=== PATIENT | female | born 1970 | race African-American/Black ===

== ENCOUNTER 2017-03-13 21:08 | Emergency (ER) | payer SELFPAY ==
[~2017-03-13] VITALS: Ht 162.6 cm; Wt 86.4 kg
[~2017-03-13 21:08] MED LIST: ANTIVERT 25MG25 MG PO; ATIVAN 0.50.5 MG/TAB PO; CEFTIN500 MG PO; CYMBALTA 20MG20 MG PO; FLEXERIL 1010 MG/TAB PO; FLEXERIL5 MG PO; MOBIC 7.5MG7.5 MG; MOBIC15 MG PO; NAPROSYN500 MG PO; NORCO 325 MG-51 TAB PO; NORCO 325 MG-7.1 TAB PO; PRAVACHOL10 MG PO; PREDNISONE20 MG PO; PROAIR HFA0.09 MG/AC IH; ULTRAM 50MG TAB50 MG PO; VENTOLIN0.09 MG IH; ZANAFLEX2 MG PO; ZOFRAN8 MG PO
[2017-03-13 21:12] VITALS: TEMP 97.9
[2017-03-13] MEDS ORDERED: SYNTHROID 0.0.025 MG PO (21:15)
[2017-03-13 21:47] LABS: BASO # 0.1 (0.0-0.2); BASO % 0.7 % (0.0-2.0); EOS # 0.1 (0.0-0.7); EOS % 1.9 % (0-4.0); GRAN # 3.5 (1.4-6.5); GRAN % 50.3 % (42.2-75.2); HEMATOCRIT 43.2 % (37.0-47.0); HEMOGLOBIN 14.4 g/dl (12.5-16.0); LYMPH # 2.8 (1.2-3.4); LYMPH % 39.4 % (20.0-51.0); MEAN CELL VOLUME 91 fl (80.0-100.0); MEAN CORPUSCULAR HEMOGLOBIN 30 pg (27.0-31.0); MEAN CORPUSCULAR HGB CONC 33 g/dl (33.0-37.0); MEAN PLATELET VOLUME 12.1 fl (7.4-10.4); MONO # 0.5 (0.1-0.6); MONO % 7.4 % (1.7-9.3); PLATELET COUNT 187 K/mm3 (130-400); RED BLOOD COUNT 4.76 M/mm3 (4.10-5.30); REDCELL DISTRIBUTION WIDTH-CV 14.5 % (11.5-14.5)
[2017-03-13 22:00] LABS: ADJUSTED CALCIUM 9.6 mg/dL (8.4-10.2); ALBUMIN 3.9 gm/dL (3.5-5.0); BILIRUBIN,TOTAL 0.4 mg/dL (0.0-1.0); C-REACTIVE PROTEIN 0.8 mg/dL (0.0-0.9); CALCIUM 9.5 mg/dL (8.4-10.2); CREATININE, serum 0.82 mg/dL (0.52-1.25); POTASSIUM 4.1 mmol/L (3.4-5.0); TOTAL PROTEIN 7.3 gm/dL (6.4-8.2)
[2017-03-13 22:04] LABS: PH 7 (5-8); SQUAMOUS EPITHELIAL 0-2 /hpf; URINE APPEARANCE Clear; URINE BACTERIA None Seen /hpf; URINE BILIRUBIN Negative (NEGATIVE); URINE BLOOD Negative (NEGATIVE); URINE COLOR Straw; URINE GLUCOSE Negative (NEGATIVE); URINE KETONE Negative (NEGATIVE); URINE RBC 0-2 /hpf; URINE UROBILINOGEN Negative (NEGATIVE); URINE WBC 0-2 /hpf
[2017-03-13 23:39] VITALS: BP 103/65; PULSE 69
== END 2017-03-13 23:39 | disposition home or self-care (01) ==
LOC: COL.ER 21:08 → CANBEDREQ 23:49
PROVIDERS: Physician Assistant
DX: R10.2 Pelvic and perineal pain (principal); R10.32 Left lower quadrant pain; J45.909 Unspecified asthma, uncomplicated; F17.200 Nicotine dependence, unspecified, uncomplicated
CPT/HCPCS: J2270; J2550